=== PATIENT | female | born 1980 | race Caucasian/White ===

== ENCOUNTER 2021-09-01 22:07 | Emergency (ER) | payer OTHER, SELFPAY ==
[2021-09-01] VITALS (10 sets, daily range): BP systolic 113–156; BP diastolic 72–90; PULSE 83–95; RESP 9–24; TEMP 36.4; O2SAT 94–100
--- NOTE | ~2021-09-01 | XR_ITS ---
EXAMINATION: XR chest 1V portable Exam Date/Time: 09/01/2021 22:50 CDT HISTORY: cough with SOB Comparison: None available. RESULT: Lines, tubes, and devices: Cholecystectomy clips. Lungs and pleura: Clear. Cardiomediastinal silhouette: Stable cardiomediastinal silhouette. Other: No acute osseous or upper abdominal finding. IMPRESSION: No acute cardiopulmonary process. Reviewed, dictated and finalized at location K.
--- NOTE | 2021-09-01 22:24 | ED.URI ---
HPI - URI/Sore Throat General Chief Complaint: Unspecified Stated Complaint: shaky,nausea,stabbing pain in head Time Seen by Provider: 09/01/21 22:24 Source: patient Mode of arrival: ambulatory History of Present Illness HPI Narrative: 40-year-old female with a Positive family history of coronary artery disease, history of hypertension, dyslipidemia, diabetes mellitus, coronary artery disease status post stent presents to the ER with -- cough for the past 3-4 hours -- headache no chest pain or shortness of breath. no fever no sore throat. No sinus tenderness. MD elicited complaint: cough Onset (ago): hour(s) ( started 4 hours ago) Severity: moderate Description of mucous: clear Able to tolerate fluids by mouth: Yes Exacerbating factors: nothing Relieving factors: nothing Associated symptoms: denies other symptoms Treatments prior to arrival: none Related Data Home Medications Medication Instructions Recorded Confirmed aspirin 81 mg tablet,delayed 81 mg PO DAILY 09/01/21 09/01/21 release insulin glargine 100 unit/mL (3 20 unit subcut QAM 09/01/21 09/01/21 mL) subcutaneous pen (Lantus Solostar U-100 Insulin) losartan 25 mg tablet 25 mg PO HS 09/01/21 09/01/21 metformin 500 mg tablet 500 mg PO BIDWMEAL 09/01/21 09/01/21 metoprolol tartrate 50 mg tablet 50 mg PO BID 09/01/21 09/01/21 (Lopressor) rosuvastatin 40 mg tablet (Crestor) 40 mg PO DAILY 09/01/21 09/01/21 ticagrelor 90 mg tablet (Brilinta) 90 mg PO Q12H 09/01/21 09/01/21 Allergies Allergy/AdvReac Type Severity Reaction Status Date / Time No Known Allergies Allergy Verified 09/01/21 22:33 Review of Systems Review of Systems: All systems reviewed & are unremarkable except as noted in HPI and below Constitutional: Constitutional: Reports as per HPI and Reports no additional constitutional complaints Eyes: Eyes: Reports as per HPI and Reports no additional eye complaints ENT: Reports system reviewed and no additional complaints, except as documented and Reports as per HPI Cardiovascular: Cardiovascular: Reports as per HPI and Reports no additional cardiovascular complaints Respiratory: Respiratory: Reports as per HPI, Reports no additional respiratory complaints and Reports other ( cough with intermittent mucoid sputum) Gastrointestinal: Gastrointestinal: Reports as per HPI and Reports no additional gastrointestinal complaints Genitourinary: Genitourinary: Reports no additional female genitourinary complaints and Reports as per HPI Musculoskeletal: Musculoskeletal: Reports no additional musculoskeletal complaints and Reports as per HPI Integumentary/Breasts: Skin/Breast: Reports system reviewed and no additional complaints, except as docu and Reports as per HPI Neurologic: Reports system reviewed and no additional complaints, except as documented and Reports as per HPI Psychiatric: Psychiatric: Reports no additional psychiatric complaints and Reports as per HPI Endocrine: Endocrine: Reports no additional endocrine complaints and Reports as per HPI Hematologic/Lymphatic: Hematologic/Lymphatic: Reports no additional hematologic/lymphatic complaints and Reports as per HPI Allergic/Immunologic: Allergic/Immunologic: Reports no additional allergic/immunologic complaints and Reports as per HPI [facility] Past Medical History Medical History (Updated 09/02/21 @ 01:11 by Dwight Mcmahon MD) 3-vessel CAD Dyslipidemia Hypertension STEMI (ST elevation myocardial infarction) Surgical History Surgical History (Updated 09/01/21 @ 22:44 by Dwight Mcmahon MD) Status post angioplasty with stent Family History Family History (Updated 09/01/21 @ 22:45 by Dwight Mcmahon MD) Other Diabetes mellitus Heart disease Hypertension Comments nonsmoker O about any history of drug use Exam Const: General: cooperative, healthy appearing, comfortable and anxious HENMT: Head: normal to inspection Ears: hearing grossly normal
--- NOTE | 2021-09-01 22:48 | ECG_ITS ---
Measurements Intervals [place] Rate: 85 P: 27 MT: 165 QRS: 22 QRSD: 92 T: 23 QT: 361 QTc: 429 Interpretive Statements SINUS RHYTHM NO PREVIOUS ECG AVAILABLE FOR COMPARISON Electronically Signed On 09-02-2021 11:12:36 CDT by Deonte Simpson M.D.
[2021-09-01 22:50] LABS: Glucose Point of Care 127 mg/dl (65-105)
[2021-09-02] VITALS (9 sets, daily range): BP systolic 125–133; BP diastolic 69–90; PULSE 78–90; RESP 8–24; O2SAT 94–99
[2021-09-02 00:02] LABS: Basophils Absolute Auto 0.06 K/mm3 (0.00-0.10); Basophils Percent Auto 0.5 % (0.0-1.0); Eosinophils Absolute Auto 0.13 K/mm3 (0.02-0.50); Hematocrit 42.8 % (35.0-49.0); Hemoglobin 13.8 g/dL (12.0-15.0); Immature Granulocyte Absolute 0.05 K/mm3 (0.00-0.00); Immature Granulocyte Percent A 0.4 % (0.0-0.0); Lymphocytes Absolute Auto 3.15 K/mm3 (1.10-4.50); Lymphocytes Percent Auto 24.1 % (18.0-42.0); Mean Corpuscular HGB Conc 32.2 g/dL (32.0-36.0); Mean Corpuscular Hemoglobin 31.4 pg (27.0-31.0); Mean Corpuscular Volume 97.3 fL (78.0-102.0); Mean Platelet Volume 12.2 fl (9.2-11.8); Monocytes Absolute Auto 0.95 K/mm3 (0.10-0.90); Monocytes Percent Auto 7.3 % (2.0-11.0); Neutrophils Absolute Auto 8.8 K/mm3 (1.7-7.2); Neutrophils Percent Auto 66.7 % (50.0-70.0); Platelet Count Result 173 K/mm3 (150-420); Red Cell Distribution Width 12.8 % (11.6-14.4); White Blood Count 13.1 K/mm3 (4.8-10.8)
[2021-09-02 00:11] LABS: Prothrombin Time 10.2 Seconds (9.50-12.10)
--- NOTE | 2021-09-02 00:15 | PC.NURSE ---
Pt resting c lights dimmed, she c/o some off and on sharp pain/twinges to Lt upper chest and breast wall area. No change in monitor, NSR, VSS. Awaiting lab results.
[2021-09-02 00:18] LABS: Influenza Control Valid (Valid)
[2021-09-02 00:24] LABS: Alanine Aminotransferase 14 U/L (14-59); Albumin Level 3.6 g/dL (3.4-5.0); Alkaline Phosphatase 56 U/L (46-116); Anion Gap 7 mmol/L (8-16); Aspartate Amino Transferase < 10 U/L (15-37); Bilirubin,Total 0.2 mg/dL (0.00-1.00); Blood Urea Nitrogen 9 mg/dL (7-18); Carbon Dioxide 25 mmol/L (21-32); Chloride 107 mmol/L (98-108); Estimated CRCL calculation 96 ml/min; Estimated Glomerular Filt Rate > 60; Glucose 130 mg/dL (70-99); NT Pro B Type Natriuretic Pept 22 pg/mL (0-125); Osmolality Calculated 288 mOsm/kg (285-295); Potassium 3.8 mmol/L (3.5-5.1); Sodium 139 mmol/L (136-145); Total Protein 7.1 g/dL (6.4-8.2)
[2021-09-02 00:50] LABS: Troponin I 6.8 ng/L (0.00-60.4)
[2021-09-02 00:57] LABS: SARS-CoV-2 RNA PCR Negative (Negative)
== END 2021-09-02 01:22 | disposition home or self-care (01) ==
PROVIDERS: Emergency Provider Internal Medicine Critical Care Medicine
DX: J06.9 Acute upper respiratory infection, unspecified (principal); R07.89 Other chest pain; Z20.822 Contact with and (suspected) exposure to COVID-19; E78.5 Hyperlipidemia, unspecified; I10 Essential (primary) hypertension; Z79.899 Other long term (current) drug therapy
CPT/HCPCS: 36415; 71045; 80053; 82948; 83880; 84484; 85025; 85610; 87804; 93005; 99284; C9803; U0003; U0005

== ENCOUNTER 2022-01-15 21:13 | Emergency (ER) | payer OTHER, SELFPAY ==
[2022-01-15] VITALS (12 sets, daily range): BP systolic 112–139; BP diastolic 66–88; PULSE 80–105; RESP 13–23; TEMP 36.2–36.6; O2SAT 79–100
--- NOTE | ~2022-01-15 | XR_ITS ---
EXAMINATION: XR chest 2V DATE: 01/15/2022 22:47 INDICATION: Burning chest pain. TECHNIQUE: Frontal and lateral views of the chest were obtained. COMPARISON: Chest single view 09/01/21 FINDINGS: The chest demonstrates clear lungs without pneumonia, pleural effusion, or pneumothorax. Th e heart size is normal. Surgical clips in the right upper quadrant are likely from cholecystectomy. IMPRESSION: 1. No acute cardiopulmonary disease. Reviewed, dictated and finalized at location A.
--- NOTE | 2022-01-15 21:20 | ECG_ITS ---
Measurements Intervals [place] Rate: 83 P: 18 SD: 160 QRS: 22 QRSD: 84 T: 24 QT: 367 QTc: 432 Interpretive Statements SINUS RHYTHM COMPARED TO ECG 09/01/2021 23:04:12 NO SIGNIFICANT CHANGES Electronically Signed On 01-17-2022 9:04:40 CDT by Bhavani Bassett M.D.
[2022-01-15] MEDS: ALPRAZolam (*CRX) 0.5 MG TABLET PO (21:41)
[2022-01-15 21:50] LABS: Basophils Absolute Auto 0.07 K/mm3 (0.00-0.10); Basophils Percent Auto 0.5 % (0.0-1.0); Eosinophils Absolute Auto 0.15 K/mm3 (0.02-0.50); Hematocrit 43.8 % (35.0-49.0); Hemoglobin 14.4 g/dL (12.0-15.0); Immature Granulocyte Absolute 0.04 K/mm3 (0.00-0.00); Immature Granulocyte Percent A 0.3 % (0.0-0.0); Lymphocytes Absolute Auto 4.07 K/mm3 (1.10-4.50); Lymphocytes Percent Auto 28.3 % (18.0-42.0); Mean Corpuscular HGB Conc 32.9 g/dL (32.0-36.0); Mean Corpuscular Hemoglobin 31.9 pg (27.0-31.0); Mean Corpuscular Volume 96.9 fL (78.0-102.0); Mean Platelet Volume 11.3 fl (9.2-11.8); Monocytes Absolute Auto 0.77 K/mm3 (0.10-0.90); Monocytes Percent Auto 5.4 % (2.0-11.0); Neutrophils Absolute Auto 9.3 K/mm3 (1.7-7.2); Neutrophils Percent Auto 64.5 % (50.0-70.0); Platelet Count Result 183 K/mm3 (150-420); Red Blood Count 4.52 M/mm3 (4.20-5.40); Red Cell Distribution Width 12.6 % (11.6-14.4); White Blood Count 14.4 K/mm3 (4.8-10.8)
[2022-01-15 22:14] LABS: Alanine Aminotransferase 35 U/L (14-59); Albumin Level 3.9 g/dL (3.4-5.0); Alkaline Phosphatase 56 U/L (46-116); Anion Gap 8 mmol/L (8-16); Aspartate Amino Transferase 20 U/L (15-37); Bilirubin,Total 0.5 mg/dL (0.00-1.00); Blood Urea Nitrogen 8 mg/dL (7-18); Calcium 9.2 mg/dL (8.5-10.1); Carbon Dioxide 26 mmol/L (21-32); Chloride 104 mmol/L (98-108); Estimated CRCL calculation 121 ml/min; Estimated Glomerular Filt Rate > 60; Glucose 143 mg/dL (70-99); Lipase 157 U/L (73-393); NT Pro B Type Natriuretic Pept 28 pg/mL (0-125); Osmolality Calculated 286 mOsm/kg (285-295); Potassium 3.5 mmol/L (3.5-5.1); Sodium 138 mmol/L (136-145); Total Protein 7.5 g/dL (6.4-8.2); Troponin I 5.8 ng/L (0.00-60.4)
[2022-01-15 22:15] LABS: D Dimer 0.46 mg/L (0.19-0.50); Partial Thromboplastin Time 27.6 SEC (23.90-30.70); Prothrombin Time 10.8 Seconds (9.50-12.10)
--- NOTE | 2022-01-15 22:49 | ED.CHESTPAIN ---
HPI - Chest Pain General Chief Complaint: Chest Pain Stated Complaint: Heart patient;burning Time Seen by Provider: 01/15/22 21:16 Source: patient and family Mode of arrival: ambulatory Limitations: no limitations History of Present Illness HPI narrative: this is a 41-year-old female with a significant history of coronary artery disease with stents placed, recently has been having some chest discomfort and had a stress test by her investment accounting clerk with showed no recent occlusion, and also saw her investment accounting clerk today. This patient is scheduled for an echocardiogram patient is having chest discomfort with no shortness of breath no nausea vomiting no diaphoresis patient became concerned, feels anxious. Currently no fever chills no nausea vomiting no abdominal pain no flank pain. MD complaint: chest discomfort Pertinent past history: coronary artery disease Onset (ago): day(s) Timing of current episode: episodic Prior episodes: Yes Onset: during rest Pain location: left chest Pain radiation: none Severity: mild Quality: heaviness Relieving factors: nothing Exacerbating factors: nothing Related Data Home Medications Medication Instructions Recorded Confirmed aspirin 81 mg tablet,delayed 81 mg PO DAILY 09/01/21 01/15/22 release losartan 25 mg tablet 25 mg PO HS 09/01/21 01/15/22 metformin 500 mg tablet 500 mg PO BIDWMEAL 09/01/21 01/15/22 metoprolol tartrate 50 mg tablet 50 mg PO BID 09/01/21 01/15/22 (Lopressor) rosuvastatin 40 mg tablet (Crestor) 40 mg PO DAILY 09/01/21 01/15/22 ticagrelor 90 mg tablet (Brilinta) 90 mg PO Q12H 09/01/21 01/15/22 Allergies Allergy/AdvReac Type Severity Reaction Status Date / Time No Known Allergies Allergy Verified 09/01/21 22:33 Review of Systems Review of Systems: All systems reviewed & are unremarkable except as noted in HPI and below Eyes: Eyes: Reports as per HPI ENT: Reports system reviewed and no additional complaints, except as documented PMFSH Past Medical History Medical History 3-vessel CAD Dyslipidemia Hypertension STEMI (ST elevation myocardial infarction) Surgical History Surgical History Status post angioplasty with stent Family History Family History Other Diabetes mellitus Heart disease Hypertension Exam Const: General: cooperative, healthy appearing, comfortable and no acute distress HENMT: Head: normal to inspection Ears: hearing grossly normal bilaterally Face/Nose/Sinus: Normal external nose present Face and sinus: normal facial exam Mouth: Yes Normal oral and palatal mucosa present Throat: posterior oropharynx normal Eyes: General: appearance normal, both eyes and all related structures Visual Sebastian: normal visual sebastian by confrontation Alignment and Position: alignment normal Periorbital: periorbital findings normal EOM: EOMs intact bilaterally Direct Ophthalmoscopy: normal light reflex Neck: Neck: normal visual inspection, full ROM, no lymphadenopathy and no meningeal signs Chest: Chest palpation & inspection: normal inspection of the chest and normal palpation of entire chest wall Resp: Effort & Inspection: normal respiratory effort and able to speak in complete sentences Cardio: Jugular venous distension: no JVD Palpation: normal PMI Rate: regular rate Rhythm: regular rhythm Heart sounds: S1 normal heart sound present and S2 normal heart sound present GI: Inspection: normal to inspection Auscultation: normal bowel sounds Urinary Catheter: Urinary Catheter: patent and draining Back/Spine/Pelvis: Back: no CVA tenderness Skin: General skin exam: normal color and no rashes or lesions noted Neuro: General: oriented to person, oriented to place and oriented to time Extrem: General: normal to inspection, full ROM and capillary refill normal Right lowe
== END 2022-01-15 23:06 | disposition home or self-care (01) ==
PROVIDERS: Emergency Provider Emergency Medicine
DX: F41.9 Anxiety disorder, unspecified (principal); R07.89 Other chest pain
CPT/HCPCS: 36415; 71046; 80053; 83690; 83880; 84484; 85025; 85380; 85610; 85730; 93005; 99284; A9270

== ENCOUNTER 2022-08-13 19:35 | Emergency (ER) | payer OTHER, SELFPAY ==
--- NOTE | ~2022-08-13 | XR_ITS ---
EXAMINATION: XR chest 1V portable DATE: 08/13/2022 20:41 INDICATION: Midsternal to posterior lower left-sided chest pain. TECHNIQUE: frontal view of the chest was obtained. COMPARISON: Chest radiograph dated 01/15/2022 FINDINGS: The lungs are clear with no focal airspace opacities, pulmonary edema, pleural effusion or pneumothor ax. The cardiomediastinal silhouette is normal. Visualized bones and soft tissues are unremarkable. IMPRESSION: 1. No acute cardiopulmonary disease. Reviewed, dictated and finalized at location A.
[2022-08-13 19:35] VITALS: PULSE 82
[2022-08-13 19:37] VITALS: BP 153/120; PULSE 77; RESP 18; O2SAT 98
--- NOTE | 2022-08-13 19:41 | ECG_ITS ---
Measurements Intervals [place] Rate: 70 P: 15 MT: 154 QRS: 18 QRSD: 94 T: 21 QT: 391 QTc: 424 Interpretive Statements SINUS RHYTHM BASELINE ARTIFACT- I, III, AVL NORMAL ECG COMPARED TO ECG 01/15/2022 21:24:19 NO SIGNIFICANT CHANGES Electronically Signed On 08-13-2022 21:34:25 CDT by Johnny Mcclellan D.O.
[2022-08-13 19:45] VITALS: BP 166/99; PULSE 82; RESP 20; O2SAT 98
[2022-08-13] MEDS: KETOROLAC 30 MG/ML VIAL (*BKC) IM (20:04)
[2022-08-13 20:29] LABS: Basophils Absolute Auto 0.06 K/mm3 (0.00-0.10); Basophils Percent Auto 0.6 % (0.0-1.0); Eosinophils Absolute Auto 0.09 K/mm3 (0.02-0.50); Eosinophils Percent Auto 0.9 % (1.0-6.0); Hematocrit 41.9 % (35.0-49.0); Hemoglobin 13.9 g/dL (12.0-15.0); Immature Granulocyte Absolute 0.03 K/mm3 (0.00-0.00); Immature Granulocyte Percent A 0.3 % (0.0-0.0); Immature Platelet Fraction Pct 7.6 % (1.0-7.0); Lymphocytes Absolute Auto 3.56 K/mm3 (1.10-4.50); Lymphocytes Percent Auto 33.9 % (18.0-42.0); Mean Corpuscular HGB Conc 33.2 g/dL (32.0-36.0); Mean Corpuscular Hemoglobin 31.7 pg (27.0-31.0); Mean Corpuscular Volume 95.4 fL (78.0-102.0); Mean Platelet Volume 11.6 fl (9.2-11.8); Monocytes Absolute Auto 0.62 K/mm3 (0.10-0.90); Monocytes Percent Auto 5.9 % (2.0-11.0); Neutrophils Absolute Auto 6.2 K/mm3 (1.7-7.2); Neutrophils Percent Auto 58.4 % (50.0-70.0); Platelet Count Result 167 K/mm3 (150-420); Red Blood Count 4.39 M/mm3 (4.20-5.40); Red Cell Distribution Width 11.9 % (11.6-14.4); White Blood Count 10.5 K/mm3 (4.8-10.8)
[2022-08-13 20:48] LABS: D Dimer 0.36 mg/L (0.19-0.50); INR 0.9; Prothrombin Time 10.1 Seconds (9.50-12.10)
[2022-08-13 20:55] LABS: Alanine Aminotransferase 35 U/L (14-59); Albumin Level 3.9 g/dL (3.4-5.0); Alkaline Phosphatase 61 U/L (46-116); Anion Gap 9 mmol/L (8-16); Aspartate Amino Transferase 13 U/L (15-37); Bilirubin,Total 0.3 mg/dL (0.00-1.00); Blood Urea Nitrogen 9 mg/dL (7-18); Calcium 9.1 mg/dL (8.5-10.1); Carbon Dioxide 26 mmol/L (21-32); Chloride 104 mmol/L (98-108); Estimated CRCL calculation 106 ml/min; Estimated Glomerular Filt Rate > 60; Glucose 115 mg/dL (70-99); Lipase 30 U/L (16-77); NT Pro B Type Natriuretic Pept 45 pg/mL (0-125); Osmolality Calculated 287 mOsm/kg (285-295); Potassium 4.1 mmol/L (3.5-5.1); Sodium 139 mmol/L (136-145); Total Protein 7.5 g/dL (6.4-8.2); Troponin I 4.9 ng/L (0.00-60.4)
[2022-08-13 21:07] VITALS: BP 124/85; PULSE 74; RESP 17; O2SAT 96
--- NOTE | 2022-08-13 21:07 | ED.CHESTPAIN ---
HPI - Chest Pain General Chief Complaint: Chest Pain Stated Complaint: unspecified Source: patient Mode of arrival: ambulatory Limitations: no limitations History of Present Illness HPI narrative: this is a 41-year-old female with a prior history of CAD presents with chest discomfort with no radiation of her chest pain has been going on for last 2 days has been off and on but over the last day or so it has some is increased it is reproducible there is no epigastric discomfort no nausea vomiting no diaphoresis no shortness of breath no fever chills. complaint: chest pain and chest discomfort Pertinent past history: coronary artery disease Onset (ago): day(s) Prior episodes: Yes Onset: during rest Pain location: subxiphoid Pain radiation: none Severity: moderate Quality: aching Related Data Home Medications Medication Instructions Recorded Confirmed aspirin 81 mg tablet,delayed 81 mg PO DAILY 09/01/21 08/13/22 release losartan 25 mg tablet 25 mg PO HS 09/01/21 08/13/22 metformin 500 mg tablet 500 mg PO BIDWMEAL 09/01/21 08/13/22 metoprolol tartrate 50 mg tablet 50 mg PO BID 09/01/21 08/13/22 (Lopressor) rosuvastatin 40 mg tablet (Crestor) 40 mg PO DAILY 09/01/21 08/13/22 bupropion HCl 300 mg 24 hr tablet, 300 mg PO DAILY 08/13/22 08/13/22 extended release clopidogrel 75 mg tablet 75 mg PO DAILY 08/13/22 08/13/22 insulin glargine-yfgn 100 unit/mL 20 unit subcut DAILY 08/13/22 08/13/22 (3 mL) subcutaneous pen Allergies Allergy/AdvReac Type Severity Reaction Status Date / Time No Known Allergies Allergy Verified 09/01/21 22:33 Review of Systems Review of Systems: All systems reviewed & are unremarkable except as noted in HPI and below PMFSH Past Medical History Medical History 3-vessel CAD Dyslipidemia Hypertension STEMI (ST elevation myocardial infarction) Surgical History Surgical History Status post angioplasty with stent Family History Family History Other Diabetes mellitus Heart disease Hypertension Exam Const: General: cooperative, healthy appearing, comfortable, no acute distress, well developed, alert and awake HENMT: Head: normal to inspection Face/Nose/Sinus: Normal external nose present Mouth: Yes Normal oral and palatal mucosa present Eyes: General: appearance normal, both eyes and all related structures Visual Sebastian: normal visual sebastian by confrontation Neck: Neck: normal visual inspection and full ROM Chest: Chest palpation & inspection: normal inspection of the chest Other: Reproducible chest pain with palpation Resp: Effort & Inspection: normal respiratory effort Auscultation: clear to auscultation bilaterally Cardio: Jugular venous distension: no JVD Palpation: normal PMI Rate: regular rate Rhythm: regular rhythm GI: Inspection: normal to inspection Back/Spine/Pelvis: Back: no CVA tenderness Skin: General skin exam: normal color and no rashes or lesions noted Neuro: General: oriented to person, oriented to place and oriented to time Psych: Appearance: grossly normal Mental Status: mental status grossly normal Course Course Emergency Course: patient received IM Toradol with some mild relief of her discomfort chest pain was reproducible patient does appear anxious and has a prescription for Xanax. Otherwise EKG showed no acute ST or T changes with labs including troponin and D-dimer within normal limits. Blood pressure is improved down to 124/85 patient feels much more comfortable. Vital Signs Vital signs: Vital Signs Pulse Rate 82 08/13/22 19:35 Pulse Rate 82 08/13/22 19:45 Respiratory Rate 20 08/13/22 19:45 Blood Pressure 166/99 H 08/13/22 19:45 Pulse Oximetry 98 08/13/22 19:45 Oxygen Delivery Room Air 08/13/22 19:37 [facility]
== END 2022-08-13 21:20 | disposition home or self-care (01) ==
PROVIDERS: Emergency Provider Emergency Medicine; PCP Internal Medicine
DX: M94.0 Chondrocostal junction syndrome [Tietze] (principal); F41.9 Anxiety disorder, unspecified; I25.10 Atherosclerotic heart disease of native coronary artery without angina pectoris; E78.5 Hyperlipidemia, unspecified; I10 Essential (primary) hypertension; I25.2 Old myocardial infarction; Z79.82 Long term (current) use of aspirin; Z79.4 Long term (current) use of insulin
CPT/HCPCS: 36415; 71045; 80053; 83690; 83880; 84484; 85025; 85055; 85380; 85610; 85730; 93005; 96372; 99284; J1885

== ENCOUNTER 2024-09-20 13:03 | Emergency (ER) | payer OTHER, SELFPAY ==
[2024-09-20] VITALS (21 sets, daily range): BP systolic 103–128; BP diastolic 73–89; PULSE 77–93; RESP 12–21; TEMP 36.6; O2SAT 91–99
--- NOTE | ~2024-09-20 | XR_ITS ---
EXAMINATION: XR chest 1V portable DATE: 09/20/2024 14:02 INDICATION: Chest pain TECHNIQUE: frontal view of the chest was obtained. COMPARISON: Chest radiograph dated 08/13/2022 FINDINGS: The lungs remain clear with no focal airspace opacities, pulmonary edema, pleural effusion or pneumot horax. The cardiomediastinal silhouette is normal. Cholecystectomy clips in right upper quadrant. IMPRESSION: 1. No acute cardiopulmonary disease. Reviewed, dictated and finalized at location A.
--- NOTE | 2024-09-20 13:06 | ECG_ITS ---
Test Date: 2024-09-20 13:12:54 Measurements Intervals [place] Rate: 92 P: 42 AK: 164 QRS: 43 QRSD: 86 T: 38 QT: 354 QTc: 438 Interpretive Statements SINUS RHYTHM EARLY PRECORDIAL R/S TRANSITION BORDERLINE ECG No previous ECG available for comparison Electronically Signed On 09-20-2024 13:16:42 CDT by Johnny Mcclellan D.O.
[2024-09-20 14:04] LABS: Basophils Absolute Auto 0.05 K/mm3 (0.00-0.10); Basophils Percent Auto 0.5 % (0.0-1.0); Hematocrit 42.7 % (35.0-49.0); Hemoglobin 14.3 g/dL (12.0-15.0); Immature Granulocyte Absolute 0.04 K/mm3 (0.00-0.00); Immature Granulocyte Percent A 0.4 % (0.0-0.0); Lymphocytes Percent Auto 28.1 % (18.0-42.0); Mean Corpuscular HGB Conc 33.5 g/dL (32-36); Mean Corpuscular Hemoglobin 31.8 pg (27.0-31.0); Mean Corpuscular Volume 94.9 fL (78.0-102.0); Mean Platelet Volume 11.3 fl (9.2-11.8); Monocytes Absolute Auto 0.52 K/mm3 (0.10-0.90); Monocytes Percent Auto 5.4 % (2.0-11.0); Neutrophils Percent Auto 64.6 % (50.0-70.0); Platelet Count Result 190 K/mm3 (150-420); Red Cell Distribution Width 12.5 % (11.6-14.4); White Blood Count 9.6 K/mm3 (4.8-10.8)
[2024-09-20 14:04] LABS: Add Urine Microscopic? YES; Appearance Urine Clear (Clear); Bilirubin Urine Negative (Negative); Blood Urine 1+ (Negative); Color Urine Light Yellow (Yellow); Glucose Urine UA Negative (Negative); Ketones Urine Negative (Negative); Leukocyte Esterase Ur Trace LEU/UL (Negative); Nitrate Urine Negative (Negative); Protein Urine Negative (Negative); Specific Grav Ur <= 1.005 (1.010-1.020); Urobilinogen Urine 0.2 mg/dL (0.2-1.0); pH Urine 5.5 (5.0-8.0)
[2024-09-20 14:15] LABS: RBC Urine None seen /hpf (0-2); Squamous Epithelial Cell Urine Few /hpf (Few); WBC Urine 0-3 /hpf (0-3)
[2024-09-20 14:16] LABS: Bacteria Urine 1+ /hpf
[2024-09-20 14:19] LABS: Alanine Aminotransferase 31 U/L (6-35); Albumin Level 4.2 g/dL (3.5-5.1); Alkaline Phosphatase 67 U/L (38-126); Anion Gap 5 mmol/L (4-12); Aspartate Amino Transferase 30 U/L (14-36); Bilirubin,Total 0.5 mg/dL (0.2-1.3); Blood Urea Nitrogen 9 mg/dL (7-17); Calcium 9.3 mg/dL (8.4-10.2); Carbon Dioxide 24 mmol/L (22-30); Chloride 107 mmol/L (98-107); Estimated CRCL calculation 128 ml/min; Estimated Glomerular Filt Rate > 60; Glucose 132 mg/dL (65-110); Lipase 93 U/L (23-300); Osmolality Calculated 282 mOsm/kg (285-295); Potassium 3.9 mmol/L (3.4-5.0); Sodium 136 mmol/L (137-145)
[2024-09-20 14:21] LABS: D Dimer 0.25 mg/L (0.19-0.50)
[2024-09-20 14:28] LABS: INR 0.9; Partial Thromboplastin Time 25.9 Sec (23.9-30.70); Prothrombin Time 10.2 Seconds (9.50-12.1)
[2024-09-20 14:31] LABS: NT Pro B Type Natriuretic Pept < 20 pg/mL (19.9-100); Troponin I < 0.012 ng/mL (0.000-0.034)
[2024-09-20] MEDS: KETOROLAC (*BKC) 60 MG/2 ML VIAL IM (15:07)
[2024-09-20 16:01] LABS: Troponin I < 0.012 ng/mL (0.000-0.034)
--- NOTE | 2024-09-20 18:21 | ED_ITS ---
HPI - Back Pain/Injury General Chief Complaint: Back Pain/Injury Stated Complaint: back pain Time Seen by Provider: 09/20/24 13:06 Source: patient and family Mode of arrival: ambulatory Limitations: no limitations History of Present Illness HPI Narrative: Patient is a 43-year-old female with coronary artery disease and 2 stents at age 37. She is here for back pain of the left scapula area for the past day. MD elicited complaint: back pain ( Left upper scapula) Pertinent past history: other ( coronary artery disease with stents, diabetes 2, lipids, hypertension) Onset (ago): day(s) ( 1) Timing: intermittent Severity: moderate Pain scale (0-10): 4 Similar Symptoms Previously: No Quality: sharp, stabbing and spasming Location: thoracic spine ( left scapula) and left upper back Radiation: none Exacerbating factors: movement and other ( palpation of the area) Relieving factors: immobilization and movement Context: other ( patient has left upper back pain for the past day and concerns for prior coronary disease) Associated symptoms: denies other symptoms Treatments prior to arrival: other ( none) Related Data Home Medications ?Medication ?Instructions ?Recorded ?Confirmed ?Last Taken ?Type aspirin 81 mg tablet,delayed 81 mg PO DAILY 09/01/21 08/13/22 Unknown History release losartan 25 mg tablet 25 mg PO HS 09/01/21 08/13/22 Unknown History metformin 500 mg tablet 500 mg PO BIDWMEAL 09/01/21 08/13/22 Unknown History metoprolol tartrate 50 mg tablet 50 mg PO BID 09/01/21 08/13/22 Unknown History (Lopressor) rosuvastatin 40 mg tablet (Crestor) 40 mg PO DAILY 09/01/21 08/13/22 Unknown History bupropion HCl 300 mg 24 hr tablet, 300 mg PO DAILY 08/13/22 08/13/22 Unknown History extended release clopidogrel 75 mg tablet 75 mg PO DAILY 08/13/22 08/13/22 Unknown History insulin glargine-yfgn 100 unit/mL 20 unit subcut DAILY 08/13/22 08/13/22 Unknown History (3 mL) subcutaneous pen Allergies Allergy/AdvReac Type Severity Reaction Status Date / Time No Known Allergies Allergy Verified 09/20/24 13:37 Review of Systems 2 Review of Systems: All systems reviewed & are unremarkable except as noted in HPI and below Constitutional: Constitutional: Reports no additional constitutional complaints Eyes: Eyes: Reports no additional eye complaints ENT: Reports system reviewed and no additional complaints, except as documented Cardiovascular: Cardiovascular: Reports no additional cardiovascular complaints Respiratory: Respiratory: Reports no additional respiratory complaints Gastrointestinal: Gastrointestinal: Reports no additional gastrointestinal complaints Genitourinary: Genitourinary: Reports no additional female genitourinary complaints Musculoskeletal: Musculoskeletal: Reports no additional musculoskeletal complaints Integumentary/Breasts: Skin/Breast: Reports system reviewed and no additional complaints, except as docu Neurologic: Reports system reviewed and no additional complaints, except as documented Psychiatric: Psychiatric: Reports no additional psychiatric complaints Endocrine: Endocrine: Reports no additional endocrine complaints Hematologic/Lymphatic: Hematologic/Lymphatic: Reports no additional hematologic/lymphatic complaints Allergic/Immunologic: Allergic/Immunologic: Reports no additional allergic/immunologic complaints [facility] Past Medical History Medical History Hypertension Dyslipidemia 3-vessel CAD STEMI (ST elevation myocardial infarction) Surgical History Surgical History Status post angioplasty with stent Family History Family History Other Diabetes mellitus Heart disease Hypertension Exam 2 Const: General: healthy appearing Nutritional Appearance: well nourished Orientation/consciousness: patient oriented x3 HENMT: Head: normal to inspection Ears: external ears normal F gigi/Nose/Sinus: Normal external nose present Eyes: Conjunctivae: conjunctivae normal Pupils: Equal, round and reactive pupils present EOM: EOMs intact bilaterally Neck: Neck: normal visual inspection Chest: Chest palpation & inspection: normal inspection of the chest Resp: Effort & Inspection: normal respiratory effort and not labored A uscultation: clear to auscultation bilaterally and no crackles Cardio: Rate: regular rate Rhythm: regular rhythm Heart sounds: no murmurs GI: Inspection: non-distended GI Palp: Yes Soft to palpation and No Tenderness to palpation present (GI) Auscultation: normal bowel sounds : General: Yes bladder normal to palpation Back/Spine/Pelvis: Back: no CVA tenderness Other: left upper back muscle spasm and tenderness of the scapular region to palpation; reproducible pain Skin: General skin exam: normal color Rashes: no rashes Wounds: no wounds Neuro: General: patient oriented x3, moves all extremities, no meningeal signs, no focal motor deficits and CN's II-XI intact bilaterally Extrem: General: normal to inspection Psych: Mental Status: mental status grossly normal Affect: normal affect Attitude: cooperative Course Vital Signs Vital signs: Vital Signs Temperature 36.6 C 09/20/24 13:03 Pulse Rate 93 09/20/24 13:03 Respiratory Rate 16 09/20/24 13:03 Blood Pressure 128/73 09/20/24 13:03 Pulse Oximetry 98 09/20/24 13:03 Oxygen Delivery Room Air 09/20/24 13:03 Temperature 36.6 C 09/20/24 13:03 Pulse Rate 86 09/20/24 16:16 Respiratory Rate 16 09/20/24 16:16 Blood Pressure 110/86 09/20/24 16:16 Pulse Oximetry 98 09/20/24 16:16 Oxygen Delivery Room Air 09/20/24 14:45 MDM - Back Pain/Injury MDM Narrative Medical decision making narrative: patient is a 43-year-old female with left upper back pain. She has CAD. We will do a cardiac rule out at this time but likely this is musculoskeletal. Lab Data Attestation: I reviewed the patient's lab results. 09/20/24 13:46 09/20/24 13:46 Labs: Lab Results 09/20/24 09/20/24 09/20/24 Range/Units 13:45 13:46 15:33 WBC 9.6 (4.8-10.8) K/mm3 RBC 4.50 (4.20-5.40) M/mm3 Hgb 14.3 (12.0-15.0) g/dL Hct 42.7 (35.0-49.0) % MCV 94.9 (78.0-102.0) fL MCH 31.8 H (27.0-31.0) pg MCHC 33.5 (32-36) g/dL RDW 12.5 (11.6-14.4) % Plt Count 190 (150-420) K/mm3 MPV 11.3 (9.2-11.8) fl Immature Gran % (Auto) 0.4 H (0.0-0.0) % Neut % (Auto) 64.6 (50.0-70.0) % Lymph % (Auto) 28.1 (18.0-42.0) % Lucas % (Auto) 5.4 (2.0-11.0) % Eos % (Auto) 1.0 (1.0-6.0) % Baso % (Auto) 0.5 (0.0-1.0) % Lymph # (Auto) 2.70 (1.10-4.50) K/mm3 Lucas # (Auto) 0.52 (0.10-0.90) K/mm3 Eos # (Auto) 0.10 (0.02-0.50) K/mm3 Baso # (Auto) 0.05 (0.00-0.10) K/mm3 Abs Immat Gran (auto) 0.04 H (0.00-0.00) K/mm3 Absolute Neuts (auto) 6.20 (1.70-7.20) K/mm3 Absolute Nucleated RBC 0.00 (0.00-0.00) K/mm3 Nucleated RBC % 0.0 (0-0.0) % PT 10.2 (9.50-12.1) Seconds INR 0.9 APTT 25.9 (23.9-30.70) Sec D-Dimer 0.25 (0.19-0.50) mg/L Sodium 136 L (137-145) mmol/L Potassium 3.9 (3.4-5.0) mmol/L Chloride 107 (98-107) mmol/L Carbon Dioxide 24 (22-30) mmol/L Anion Gap 5 (4-12) mmol/L BUN 9 (7-17) mg/dL Creatinine 0.52 L (0.7-1.0) mg/dL Estim Creat Clear Calc 128 ml/min Estimated GFR > 60 (59 - ) Glucose 132 H (65-110) mg/dL Calculated Osmolality 282 L (285-295) mOsm/kg Calcium 9.3 (8.4-10.2) mg/dL Total Bilirubin 0.5 (0.2-1.3) mg/dL AST 30 (14-36) U/L ALT 31 (6-35) U/L Alkaline Phosphatase 67 (38-126) U/L Troponin I < 0.012 < 0.012 (0.000-0.034) ng/mL NT-Pro-B Natriuret Pep < 20 (19.9-100) pg/mL Total Protein 7.0 (6.3-8.2) g/dL Albumin 4.2 (3.5-5.1) g/dL Lipase 93 (23-300) U/L Urine Color Light yellow (Yellow) Urine Appearance Clear (Clear) Urine pH 5.5 (5.0-8.0) Ur Specific [place] <= 1.005 L (1.010-1.020) Urine Protein Negative (Negative) Urine Glucose (UA) Negative (Negative) Urine Ketones Negative (Negative) Ur Blood (Man) 1+ H (Negative) Urine Nitrate Negative (Negative) Urine Bilirubin Negative (Negative) Urine Urobilinogen 0.2 (0.2-1.0) mg/dL Leukocyte Esterase Rfl Trace H (Negative) LINDA/UL Urine RBC None seen (0-2) /hpf Urine WBC 0-3 (0-3) /hpf Ur Squamous Epith Cells Few (Few) /hpf Urine Bacteria 1+ H (None) /hpf Imaging Data Attestation: I personally reviewed and interpreted this imaging study as follows: Radiologist's impression: Chest x-ray is negative for acute process Discharge Plan Discharge Clinical Impression: Acute UTI Acute thoracic myofascial strain Qualifiers: Encounter type: initial encounter Qualified Code(s): S29.019A - Strain of muscle and tendon of unspecified wall of thorax, initial encounter Patient Disposition: Home Condition: Stable Instructions: Back Pain (ED) Patient Language: Mongolian Prescriptions: New cephalexin 500 mg capsule 500 mg PO BID 7 Days Qty: 14 0RF No Action metformin 500 mg Tablet 500 mg PO BIDWMEAL aspirin 81 mg Tablet,Delayed Release (Dr/Ec) 81 mg PO DAILY losartan 25 mg Tablet 25 mg PO HS metoprolol tartrate [Lopressor] 50 mg Tablet 50 mg PO BID rosuvastatin [Crestor] 40 mg Tablet 40 mg PO DAILY clopidogrel 75 mg tablet 75 mg PO DAILY bupropion HCl 300 mg tablet extended release 24 hr 300 mg PO DAILY insulin glargine-yfgn 100 unit/mL (3 mL) insulin pen 20 unit SUBCUT DAILY Follow-up/Referrals: Jadile Rogers MD [Primary Care Provider] - Time of Disposition: 16:21
== END 2024-09-20 16:25 | disposition home or self-care (01) ==
PROVIDERS: Emergency Provider Emergency Medicine; PCP Internal Medicine
DX: N39.0 Urinary tract infection, site not specified (principal); S29.019A Strain of muscle and tendon of unspecified wall of thorax, initial encounter; I25.10 Atherosclerotic heart disease of native coronary artery without angina pectoris; E11.9 Type 2 diabetes mellitus without complications; I10 Essential (primary) hypertension; E78.5 Hyperlipidemia, unspecified; I25.2 Old myocardial infarction; X58.XXXA Exposure to other specified factors, initial encounter
CPT/HCPCS: 36415; 71045; 80053; 81001; 83690; 83880; 84484; 85025; 85380; 85610; 85730; 93005; 96372; 99284; J1885